=== PATIENT | female | born 1950 | race Hispanic/Latino ===

== ENCOUNTER → 2020-01-29 | Outpatient (CLI) | payer MEDICARE ==
--- NOTE | 2020-01-30 13:31 | Diagnostic Imaging Report ---
Examination: MRI SPINE LUMBAR WO CONTRAST History: Low back pain radiating down the back of the left lower extremity. Comparison studies: None Technique: Sagittal, coronal and axial T2 , sagittal T1 and STIR; axial spin density oblique. Findings: Number of lumbar vertebral bodies: Five. Alignment: Normal lordosis. Rightward curvature centered at L3. Soft tissues: No T2 hyperintense inflammatory changes. Posterior paraspinal soft tissues and muscles: No abnormality. Lower thoracic cord: Normal in signal and morphology. The tip of the conus is at L1. Cauda equina: No masses. No arachnoiditis. Vertebrae: No fractures, infection or neoplasm. Degenerative changes: L1-L2: Mild bilateral facet arthropathy. No disc herniation or bulge or canal or foraminal stenosis. L2-L3: Asymmetric to the left disc bulge and bilateral facet arthropathy result in mild left neural foraminal narrowing and mild canal stenosis. No right foraminal narrowing. L3-L4: Diffuse disc bulge, ligamentum flavum thickening and bilateral facet arthropathy result in mild right and moderate left neural foraminal narrowing and severe canal stenosis. L4-L5: Grade 1 anterolisthesis without pars defect. Diffuse disc bulge, ligamentum flavum thickening and bilateral facet arthropathy results in severe canal stenosis. No foraminal stenosis. Small bilateral facet joint effusions. L5-S1: Grade 1 anterolisthesis without pars defect. Uncovering of a diffuse disc bulge and bilateral facet arthropathy result in severe right and mild left neural foraminal narrowing and moderate canal stenosis. Small bilateral facet joint effusions. IMPRESSION: Degenerative grade 1 anterolisthesis of L4 on L5 and L5 on S1. Degenerative changes from L1-L2 through L5-S1 with severe canal stenosis at L3-L4 and L4-L5 and moderate canal stenosis at L5-S1. Moderate left foraminal narrowing at L3-L4 and severe right foraminal narrowing at L5-S1. Signed by: Dr. Tracy Smiley M.D. on 01/30/2020 1:28 PM
== END ==
LOC: MRI 08:11
PROVIDERS: ATTEND Internal Medicine
DX: M54.42 Lumbago with sciatica, left side (principal)
CPT/HCPCS: 72148

== ENCOUNTER 2020-02-26 05:17 | Observation (INO) | payer MEDICARE, OTHER ==
[2020-02-23 15:42] LABS: BASOPHILS # (AUTO) 0.1 (0.0-0.1); BASOPHILS % 0.6 % (0.0-1.0); EOSINOPHILS # (AUTO) 0.2 (0.0-0.4); HEMATOCRIT 40.5 % (34.2-44.1); LYMPHOCYTES % 35.1 % (18.0-39.1); MEAN CORPUSCULAR HEMOGLOBIN 29.5 pg (28-32); MEAN CORPUSCULAR HGB CONC 32.1 g/dL (31-35); MEAN CORPUSCULAR VOLUME 91.8 fL (81-99); MONOCYTES # (AUTO) 0.6 (0.2-0.8); MONOCYTES % 7.3 % (4.4-11.3); NEUTROPHILS # (AUTO) 4.6 (2.1-6.9); NEUTROPHILS % 54.6 % (38.7-80.0); PLATELET COUNT 191 x10e3/uL (140-360); RED BLOOD COUNT 4.41 x10e6/uL (3.6-5.1); RED CELL DISTRIBUTION WIDTH 13.3 % (11.7-14.4)
[2020-02-23 15:54] LABS: INR 0.94; PARTIAL THROMBOPLASTIN TIME 26.9 seconds (23.8-35.5); PROTHROMBIN TIME 13.1 seconds (11.9-14.5)
[2020-02-23 16:03] LABS: ANION GAP 12.3 mmol/L (8-16); BLOOD UREA NITROGEN 17 mg/dL (7-26); BUN/CREATININE RATIO 19 (6-25); CALCIUM 9.5 mg/dL (8.4-10.2); CARBON DIOXIDE 26 mmol/L (22-29); CHLORIDE 107 mmol/L (98-107); CREATININE, SERUM 0.91 mg/dL (0.57-1.11); EST GLOMERULAR FILTRATION RATE > 60 ML/MIN (60-); GLUCOSE 115 mg/dL (74-118); POTASSIUM 4.3 mmol/L (3.5-5.1); SODIUM 141 mmol/L (136-145)
[~2020-02-26] VITALS: Ht 154.9 cm; Wt 77.6 kg
[~2020-02-26 05:17] MED LIST: LUMIGAN2.5 M1 OU; METFORMIN HCL500 MG PO
[2020-02-26] MEDS ORDERED: CEFAZOLIN SOD 1 GM/NS 50ML 100 ML IV ONE (05:56)
[2020-02-26] MEDS ORDERED: LIDOCAINE 1% W/EPINEPHRINE 20 ML VIAL ONE (06:31)
[2020-02-26] MEDS ORDERED: VANCOMYCIN HCL 1 GM VIAL ONE (06:31)
[2020-02-26] MEDS ORDERED: THROMBIN-JMI W/DIL SPRAY PUMP ACTUATOR 20000 UNIT KIT ONE (06:32)
[2020-02-26] MEDS ORDERED: THROMBIN FOR SOLN 5,000 UNIT VIAL ONE (06:33)
[2020-02-26] MEDS ORDERED: LIDOCAINE HCL (LTA) 4 ML SOLN ONE (07:21)
[2020-02-26] MEDS ORDERED: IBUPROFEN 800MG/ 200ML 200 ML IV ONE (07:21)
[2020-02-26] MEDS ORDERED: HYDROMORPHONE 2MG/ML 2 MG/ML ML IV PRN (09:30)
[2020-02-26] MEDS ORDERED: OXYCODONE/ACETAMINOPHEN 5-325 1 EACH TABLET PO PRN (09:30)
[2020-02-26] MEDS ORDERED: MORPHINE SULFATE 5 MG/ML VIAL IM PRN (09:30)
[2020-02-26] MEDS ORDERED: ACETAMINOPHEN 325 MG TAB PO PRN (09:30)
[2020-02-26] MEDS ORDERED: MAGNESIUM/ALUMINUM/SIMETHICONE 30 ML UDC PO PRN (09:30)
[2020-02-26] MEDS ORDERED: ONDANSETRON HCL INJ 2MG/ML 2ML 2 MG/ML VIAL IV PRN (09:30)
[2020-02-26] MEDS ORDERED: CARISOPRODOL 350 MG TAB PO PRN (09:30)
[2020-02-26] MEDS ORDERED: CEPACOL SORE THROAT LOZENGES PO PRN (09:30)
[2020-02-26] MEDS ORDERED: PROMETHAZINE HCL (IM) 25 MG/ML VIAL IM PRN (09:30)
[2020-02-26 10:37] VITALS: BP 123/64
[2020-02-26] MEDS: LACTATED RINGER'S 1,000 ML IV SCH ×2 (11:25→17:50)
[2020-02-26 12:03] VITALS: BP 123/64
[2020-02-26] MEDS ORDERED: LIDOCAINE HCL 2% JELLY 5 ML TUBE ONE (12:11)
[2020-02-26] MEDS ORDERED: SEVOFLURANE INHAL SOLN 250 ML PEN BTL ONE (12:11)
[2020-02-26] MEDS ORDERED: NEOSTIGMINE 1 MG/ML 10ML VIAL ONE (12:11)
[2020-02-26] MEDS ORDERED: ROCURONIUM BROMIDE 10 MG/ML 5ML VIAL IV ONE (12:11)
[2020-02-26] MEDS ORDERED: DEXAMETHASONE SOD PHOS INJ 4 MG/ML VIAL ONE (12:11)
[2020-02-26] MEDS ORDERED: GLYCOPYRROLATE INJ 0.2 MG/ML VIAL ONE (12:11)
[2020-02-26] MEDS ORDERED: ONDANSETRON HCL INJ 2MG/ML 2ML 2 MG/ML VIAL ONE (12:11)
[2020-02-26] MEDS ORDERED: PROPOFOL IV EMULSION 10 MG/ML 20 ML VIAL ONE (12:11)
[2020-02-26] MEDS ORDERED: LIDOCAINE HCL 2% LOCAL INJ 5 ML SDV VIAL INJ ONE (12:11)
[2020-02-26] MEDS: CEFAZOLIN SOD 1 GM/NS 50ML 50 ML IV SCH ×2 (14:00→21:07)
[2020-02-26 16:07] VITALS: BP 105/56
[2020-02-26] MEDS ORDERED: MIDAZOLAM HCL 2 MG/2 ML VIAL ONE (17:21)
[2020-02-26] MEDS ORDERED: FENTANYL CITRATE/PF 100MCG/2 ML INJ ONE (17:21)
[2020-02-26 19:58] VITALS: BP 116/61
[2020-02-26 19:59] VITALS: BP 116/61
[2020-02-26] MEDS ORDERED: BIMATOPROST(OPTH) 2.5 ML BOTTLE OP SCH (21:00)
[2020-02-26] MEDS ORDERED: ZOLPIDEM TARTRATE 5 MG TAB PO PRN (21:00)
[2020-02-27 00:05] VITALS: BP 94/57
[2020-02-27 04:00] VITALS: BP 98/54
[2020-02-27] MEDS: CEFAZOLIN SOD 1 GM/NS 50ML 50 ML IV SCH (05:48)
[2020-02-27 08:00] VITALS: BP 103/52
[2020-02-27 08:34] VITALS: BP 103/52
[2020-02-27] MEDS ORDERED: NORCO 7.5-3251 EACH PO (08:42)
[2020-02-27] MEDS ORDERED: METFORMIN HCL 500 MG TAB PO SCH (09:00)
== END 2020-02-27 09:55 | disposition home or self-care (01) ==
LOC: OR 05:17 → PACU V 09:21 → MED/SURG 10:44
PROVIDERS: ADMIT Neurological Surgery; ATTEND Neurological Surgery
DX: M48.062 Spinal stenosis, lumbar region with neurogenic claudication (principal); Z11.59 Encounter for screening for other viral diseases; Z86.19 Personal history of other infectious and parasitic diseases; E11.9 Type 2 diabetes mellitus without complications
CPT/HCPCS: 36415 ×3; 63047; 63048 ×2; 71046; 72020; 80048; 82948 ×2; 85025; 85610; 85730; 86850; 86900; 88304; 88311; 93005; G0378 ×2; J0690 ×2; J1100; J2001 ×2; J2250; J2405; J2704; J2710; J3010; J3370; J7121; U0002